=== PATIENT | female | born 1935 | race Caucasian/White ===

== ENCOUNTER → 2021-09-29 | Outpatient (CLI) | payer MEDICARE ==
[2021-09-29 15:41] LABS: POTASSIUM 4.1 mmol/L (3.5-5.1)
[2021-09-29 15:42] LABS: ALBUMIN 4.2 g/dL (3.4-4.8)
[2021-09-29 15:43] LABS: CALCIUM 9.5 mg/dL (8.3-10.5)
[2021-09-29 15:44] LABS: TOTAL PROTEIN 7.2 g/dL (6.2-8.1)
[2021-09-29 15:46] LABS: TOTAL BILIRUBIN 0.4 mg/dL (0.2-1.2)
[2021-09-29 19:38] LABS: BASO # 0.04 K/mm3 (0.02-0.10); EOS # 0.27 K/mm3 (0.04-0.40); EOS % 5.8 % (1.0-5.0); HEMATOCRIT 42.3 % (37.0-47.0); HEMOGLOBIN 13.7 g/dL (12.5-16.0); LYMPH# 1.25 K/mm3 (1.50-4.00); MEAN CELL VOLUME 89 fl (78-100); MEAN CORPUSCULAR HEMOGLOBIN 29 pg (27-31); MEAN CORPUSCULAR HGB CONC 32 g/dL (33-37); MEAN PLATELET VOLUME 9.5 fl (7.4-10.4); NEU # 2.63 K/mm3 (1.40-6.50); PLATELET COUNT 248 K/mm3 (130-400); RED BLOOD COUNT 4.74 M/mm3 (4.10-5.30); RED CELL DISTRIBUTION WIDTH 13.2 % (11.5-14.5); WHITE BLOOD COUNT 4.7 K/mm3 (4.8-10.8)
== END ==
LOC: LAB 11:37
PROVIDERS: Physician Assistant
DX: Z00.00 Encounter for general adult medical examination without abnormal findings (principal); M19.031 Primary osteoarthritis, right wrist; Z98.890 Other specified postprocedural states; E78.5 Hyperlipidemia, unspecified; E07.9 Disorder of thyroid, unspecified; Z13.1 Encounter for screening for diabetes mellitus; K90.9 Intestinal malabsorption, unspecified; M81.0 Age-related osteoporosis without current pathological fracture; K21.9 Gastro-esophageal reflux disease without esophagitis; M19.90 Unspecified osteoarthritis, unspecified site; N32.81 Overactive bladder

== ENCOUNTER → 2021-10-06 | Outpatient (CLI) | payer MEDICARE | LOC: RAD 09:30 | DX: E04.2 Nontoxic multinodular goiter (principal) ==

== ENCOUNTER → 2022-02-16 | Outpatient (CLI) | payer MEDICARE | LOC: MAMMO 09:34 | DX: Z12.31 Encounter for screening mammogram for malignant neoplasm of breast (principal); Z13.820 Encounter for screening for osteoporosis; Z78.0 Asymptomatic menopausal state ==

== ENCOUNTER → 2022-04-06 | Outpatient (CLI) | payer MEDICARE | LOC: RAD 15:14 | DX: M21.832 Other specified acquired deformities of left forearm (principal); M25.832 Other specified joint disorders, left wrist ==

== ENCOUNTER → 2022-10-28 | Outpatient (CLI) | payer MEDICARE | LOC: RAD 10:37 → VAS 10:37 → RAD 11:00 | DX: R01.1 Cardiac murmur, unspecified (principal) ==

== ENCOUNTER → 2023-12-20 | Outpatient (CLI) | payer MEDICARE ==
[2024-02-11 11:55] LABS: BASO # 0.04 K/mm3 (0.02-0.10); EOS # 0.25 K/mm3 (0.04-0.40); EOS % 5.1 % (1.0-5.0); HEMATOCRIT 40.7 % (37.0-47.0); HEMOGLOBIN 13.7 g/dL (12.5-16.0); LYMPH# 1.11 K/mm3 (1.50-4.00); MEAN CELL VOLUME 88 fl (78-100); MEAN CORPUSCULAR HEMOGLOBIN 30 pg (27-31); MEAN CORPUSCULAR HGB CONC 34 g/dL (33-37); MEAN PLATELET VOLUME 8.8 fl (7.4-10.4); MONO # 0.45 K/mm3 (0.20-0.80); PLATELET COUNT 248 K/mm3 (130-400); RED BLOOD COUNT 4.65 M/mm3 (4.10-5.30); RED CELL DISTRIBUTION WIDTH 12.7 % (11.5-14.5)
[2024-02-11 11:57] LABS: ALBUMIN 4.3 g/dL (3.4-4.8); CALCIUM 9.9 mg/dL (8.3-10.5); TOTAL BILIRUBIN 0.4 mg/dL (0.2-1.2); TOTAL PROTEIN 7.2 g/dL (6.2-8.1)
== END ==
LOC: LAB 08:00
PROVIDERS: Physician Assistant
DX: I10 Essential (primary) hypertension (principal); M81.0 Age-related osteoporosis without current pathological fracture; R60.0 Localized edema; E78.5 Hyperlipidemia, unspecified; E07.9 Disorder of thyroid, unspecified; R73.9 Hyperglycemia, unspecified; K90.9 Intestinal malabsorption, unspecified

== ENCOUNTER → 2024-03-13 | Outpatient (CLI) | payer MEDICARE | LOC: RAD 10:12 | DX: M16.0 Bilateral primary osteoarthritis of hip (principal) ==

== ENCOUNTER → 2024-05-22 | Outpatient (CLI) | payer MEDICARE | LOC: MAMMO 10:18 | DX: Z12.31 Encounter for screening mammogram for malignant neoplasm of breast (principal) ==

== ENCOUNTER → 2024-09-23 | Outpatient (CLI) | payer MEDICARE | LOC: RAD 11:13 → MAMMO 11:30 | DX: Z13.820 Encounter for screening for osteoporosis (principal); M81.0 Age-related osteoporosis without current pathological fracture ==